=== PATIENT | male | born 1980 | race Two or more races ===

== ENCOUNTER 2021-12-24 11:07 | Emergency (ER) | payer MEDICAID, OTHER ==
[~2021-12-24] VITALS: Ht 180.3 cm; Wt 102.2 kg
[2021-12-24] MEDS ORDERED: KETOROLAC TROMETH 60MG/2ML VIAL IM ONE (13:00)
[2021-12-24] MEDS ORDERED: HYDROcodone-ACET 10/325MG TAB PO ONE (13:00)
[2021-12-24] MEDS ORDERED: TRAM-297 PO (13:21)
[2021-12-24] MEDS ORDERED: GABA300C10 PO (13:21)
[2021-12-24 13:27] VITALS: BP 140/87
== END 2021-12-24 15:30 | disposition home or self-care (01) ==
LOC: ER 11:07
DX: M51.36 Other intervertebral disc degeneration, lumbar region (principal); M54.16 Radiculopathy, lumbar region; E11.9 Type 2 diabetes mellitus without complications; G43.909 Migraine, unspecified, not intractable, without status migrainosus; F17.210 Nicotine dependence, cigarettes, uncomplicated
CPT/HCPCS: 72100; 96372; 99283; J1885

== ENCOUNTER 2023-03-11 23:07 | Emergency (ER) | payer MEDICAID ==
[~2023-03-11] VITALS: Ht 180.3 cm; Wt 99.1 kg
[~2023-03-11 23:07] MED LIST: GABA-1250 PO; TRAM-297 PO
[2023-03-11 23:27] VITALS: BP 129/76; PULSE 83; RESP 16; TEMP 97.9; O2SAT 97
[2023-03-11] MEDS ORDERED: ARIP2TAB PO (23:54)
== END 2023-03-12 00:05 | disposition home or self-care (01) ==
LOC: ER 23:07
DX: F20.9 Schizophrenia, unspecified (principal); I10 Essential (primary) hypertension; E11.9 Type 2 diabetes mellitus without complications; F17.210 Nicotine dependence, cigarettes, uncomplicated; Z76.0 Encounter for issue of repeat prescription

== ENCOUNTER 2023-03-18 03:58 | Inpatient (IN) | payer MEDICAID ==
[~2023-03-18] VITALS: Ht 180.3 cm; Wt 96.0 kg
[~2023-03-18 03:58] MED LIST changes: +ARIP2TAB PO
[2023-03-18 05:18] LABS: Urine Bacteria NONE SEEN /hpf (None Seen); Urine Blood Negative /uL (Negative); Urine Clarity Clear (Clear); Urine Color Yellow (Yellow); Urine Hyaline Cast FEW /lpf (0 - 2); Urine Mucus FEW (None Seen); Urine Protein, UAD 1+ (Negative); Urine Specific Gravity 1.029 (1.001-1.035); Urine Urobilinogen Normal (Negative); Urine WBC 1 /hpf (0 - 3); Urine pH 5.5 (5.0-8.0)
[2023-03-18 05:26] LABS: Basophils # (auto) 0 10 ^3/uL (0-0.2); Basophils % (auto) 0.3 % (0.0-2.0); Eosinophils # (auto) 0 10 ^3/uL (0-0.8); Eosinophils % (auto) 0.1 % (0.0-7.0); Hematocrit 48.9 % (41.0-53.0); Hemoglobin 16.6 g/dL (13.5-17.5); Lymphocytes # (auto) 0.5 10 ^3/uL (0.4-5.4); Lymphocytes % (auto) 3.1 % (10.0-50.0); Mean Corpuscular Volume 94.1 fL (80.0-100.0); Monocytes # (auto) 0.8 10 ^3/uL (0-1.3); Monocytes % (auto) 5.3 % (0.0-12.0); Neutrophils # (auto) 13.6 10 ^3/uL (1.6-8.6); Neutrophils % (auto) 91.2 % (37.0-80.0); Red Cell Distribution Width 13.5 % (11.8-14.3)
[2023-03-18 05:32] LABS: Alanine Aminotransferase 35 U/L (7-40); Albumin 4.9 g/dL (3.2-4.8); Alkaline Phosphatase 105 U/L (46-116); Anion Gap 8 (5-15); Aspartate Aminotransferase 33 U/L (13-40); Bilirubin, Total 0.5 mg/dL (0.2-1.0); Blood Urea Nitrogen 7 mg/dL (9-23); Calcium 9.6 mg/dL (8.7-10.4); Carbon Dioxide 23 mmol/L (20-30); Chloride 102 mmol/L (98-107); Glucose 111 mg/dL (74-106); Lipase 55 U/L (12-53); Sodium 133 mmol/L (136-145)
[2023-03-18] MEDS ORDERED: cefTRIAXone 1GM/50ML D5W 50 ML IV ONE (08:15)
[2023-03-18] MEDS ORDERED: metroNIDAZOLE 500MG/100ML 100 ML IV ONE (08:15)
[2023-03-18] MEDS ORDERED: SODIUM CHLORIDE 0.9% 2,000 ML IV ONE (09:30)
[2023-03-18] MEDS ORDERED: SODIUM CHLORIDE 0.9% 1,000 ML IV ONE (09:30)
[2023-03-18] MEDS ORDERED: DEXTROSE (50%) 50ML SYRG IV PRN (09:30)
[2023-03-18] MEDS: SODIUM CHLORIDE 0.9% 1,000 ML IV SCH ×2 (09:30→18:01)
[2023-03-18] MEDS ORDERED: DOCUSATE SOD 100 MG CAP PO PRN (09:30)
[2023-03-18] MEDS ORDERED: MORPHINE SULFATE INJ 2 MG/ml SYRG IV ONE (09:30)
[2023-03-18] MEDS ORDERED: ONDANSETRON HCL 4 MG/2 ML VIAL IV PRN (09:30)
[2023-03-18] MEDS ORDERED: TEMAZEPAM 15 MG CAP PO PRN (09:30)
[2023-03-18] MEDS ORDERED: DICYCLOMINE HCL (10MG/ML) 2 ML AMPULE IM ONE (09:30)
[2023-03-18] MEDS ORDERED: LORazepam 2MG/ML-1ML VIAL IV PRN (09:30)
[2023-03-18] MEDS: ACCU-CHEK COMFORT CURVE STRIP VI SCH ×3 (11:30→22:04)
[2023-03-18] MEDS: InsuLIN REG 1unit/0.01ml Soln (100units/ml) SC SCH ×3 (11:30→22:00)
[2023-03-18] MEDS ORDERED: ATOR20TA50 PO (11:50)
[2023-03-18] MEDS ORDERED: ARIP1TAB58 PO (11:50)
[2023-03-18] MEDS ORDERED: OXCA600T3 (11:50)
[2023-03-18] MEDS ORDERED: TAMS0.4C36 PO (11:50)
[2023-03-18] MEDS ORDERED: CITA10TA5 PO (11:50)
[2023-03-18] MEDS ORDERED: BENA-19 PO (11:50)
[2023-03-18] MEDS: DICYCLOMINE HCL 10 MG CAP PO SCH ×3 (12:00→23:41)
[2023-03-18] MEDS: OXcarbazepine 300 MG TAB PO SCH ×2 (15:08→22:41)
[2023-03-18] MEDS: CITALOPRAM HYDROBR 20 MG TAB PO SCH (15:08)
[2023-03-18] MEDS: MORPHINE SULFATE INJ 2 MG/ml SYRG IV PRN ×2 (16:09→23:47)
[2023-03-18] MEDS: PIPERACILLIN-TAZOB 3.375GM 100 ML IV SCH (18:42)
[2023-03-18 23:29] VITALS: PULSE 88; RESP 17; O2SAT 97
[2023-03-18 23:57] VITALS: BP 140/89; PULSE 79; RESP 19; TEMP 98.2; O2SAT 97
[2023-03-19] VITALS (7 sets, daily range): BP systolic 104–135; BP diastolic 61–71; PULSE 57–91; RESP 16–20; TEMP 97.9–98.7; O2SAT 90–100
[2023-03-19] MEDS: SODIUM CHLORIDE 0.9% 1,000 ML IV SCH ×2 (01:43→18:01)
[2023-03-19] MEDS: PIPERACILLIN-TAZOB 3.375GM 100 ML IV SCH ×3 (01:43→23:39)
[2023-03-19] MEDS: DICYCLOMINE HCL 10 MG CAP PO SCH ×4 (06:20→22:00)
[2023-03-19] MEDS: ACCU-CHEK COMFORT CURVE STRIP VI SCH ×4 (06:21→22:00)
[2023-03-19] MEDS: InsuLIN REG 1unit/0.01ml Soln (100units/ml) SC SCH ×4 (06:21→22:00)
[2023-03-19 06:22] LABS: Basophils # (auto) 0 10 ^3/uL (0-0.2); Basophils % (auto) 0.2 % (0.0-2.0); Eosinophils # (auto) 0 10 ^3/uL (0-0.8); Eosinophils % (auto) 0.4 % (0.0-7.0); Hematocrit 44.2 % (41.0-53.0); Hemoglobin 14.7 g/dL (13.5-17.5); Lymphocytes # (auto) 0.5 10 ^3/uL (0.4-5.4); Lymphocytes % (auto) 4.8 % (10.0-50.0); Mean Corpuscular Hemoglobin 31.8 pg (28.0-32.0); Mean Corpuscular Hgb Conc. 33.2 g/dL (32.0-36.0); Mean Corpuscular Volume 95.8 fL (80.0-100.0); Monocytes # (auto) 1.3 10 ^3/uL (0-1.3); Monocytes % (auto) 12.8 % (0.0-12.0); Neutrophils # (auto) 8.3 10 ^3/uL (1.6-8.6); Neutrophils % (auto) 81.8 % (37.0-80.0); Red Blood Cells 4.62 10^6/uL (4.5-5.90); Red Cell Distribution Width 13.1 % (11.8-14.3); White Blood Cell 10.1 10^3/uL (4.4-10.8)
[2023-03-19 06:41] LABS: Alanine Aminotransferase 24 U/L (7-40); Alkaline Phosphatase 78 U/L (46-116); Anion Gap 4 (5-15); Aspartate Aminotransferase 30 U/L (13-40); Bilirubin, Total 0.3 mg/dL (0.2-1.0); Calcium 9.1 mg/dL (8.7-10.4); Carbon Dioxide 26 mmol/L (20-30); Chloride 104 mmol/L (98-107); Glucose 92 mg/dL (74-106); Potassium 4.7 mmol/L (3.5-5.1); Sodium 134 mmol/L (136-145); Total Protein 6.5 g/dL (5.7-8.2)
[2023-03-19 06:44] LABS: Blood Urea Nitrogen < 5 mg/dL (9-23)
[2023-03-19 07:04] LABS: BUN/Creatinine Ratio 4.5 (10.0-20.0)
[2023-03-19 08:17] LABS: INR 1.06 (0.9-1.15); Prothrombin Time 11.1 sec (9.3-11.8)
[2023-03-19] MEDS ORDERED: TAMSULOSIN HYDROCHLORIDE 0.4 MG CAP PO ONE (10:00)
[2023-03-19] MEDS ORDERED: LIDOCAINE W/ EPINEPHRINE 2% INJ 20ML VIAL ONE (11:48)
[2023-03-19] MEDS ORDERED: HYDROmorphone HCL 2 MG/ML VL/or syr IV PRN (12:00)
[2023-03-19] MEDS ORDERED: ONDANSETRON HCL 4 MG/2 ML VIAL IV PRN ×2 (12:00→13:45)
[2023-03-19] MEDS ORDERED: MEPERIDINE HCL (25 MG/ML) 1ML VIAL IV PRN (12:00)
[2023-03-19] MEDS ORDERED: METOCLOPRAMIDE HCL 5MG/ml INJ 2ml VIAL IV PRN (12:00)
[2023-03-19] MEDS ORDERED: SUCCINYLCHOLINE CHLORIDE 20 MG/ML 10ML VIAL IV ONE (12:02)
[2023-03-19] MEDS ORDERED: ceFAZolin 1GM/50ML 100 ML IV ONE (12:04)
[2023-03-19] MEDS ORDERED: fentaNYL CITRATE 100 MCG/2 ML VL ONE (12:20)
[2023-03-19] MEDS ORDERED: ONDANSETRON HCL 4 MG/2 ML VIAL ONE (12:30)
[2023-03-19] MEDS ORDERED: PROPOFOL 10 MG/ML 20 ML IV ONE (12:30)
[2023-03-19] MEDS ORDERED: DexAMETHasone SOD PHOS 10MG/1ML VIAL INJ ONE (12:30)
[2023-03-19] MEDS ORDERED: ROCURONIUM 10MG/ML 10ML VIAL IV ONE (12:31)
[2023-03-19] MEDS ORDERED: MEPERIDINE HCL (25 MG/ML) 1ML VIAL ONE ×3 (12:32→13:26)
[2023-03-19] MEDS ORDERED: SUGAMMADEX 200mg/2ml Vial (100MG/ML) IV ONE (13:10)
[2023-03-19] MEDS ORDERED: ACETAMINOPHEN/CODEINE#3 (300/30mg) TAB PO PRN (13:45)
[2023-03-19] MEDS ORDERED: MORPHINE SULFATE INJ 2 MG/ml SYRG IV PRN (13:45)
[2023-03-19] MEDS ORDERED: SODIUM CHLORIDE 0.9% 1,000 ML IV SCH (13:45)
[2023-03-19] MEDS: MORPHINE SULFATE INJ 2 MG/ml SYRG IV PRN (15:02)
[2023-03-19] MEDS: OXcarbazepine 300 MG TAB PO SCH ×2 (15:13→22:00)
[2023-03-19] MEDS: CITALOPRAM HYDROBR 20 MG TAB PO SCH (15:13)
[2023-03-19] MEDS: BENAZEPRIL HCL 10 MG TAB PO SCH (15:13)
[2023-03-19] MEDS ORDERED: ATORVASTATIN 20 MG TAB PO SCH (22:00)
[2023-03-20] MEDS: SODIUM CHLORIDE 0.9% 1,000 ML IV SCH (04:30)
[2023-03-20 04:45] VITALS: BP 111/60; PULSE 57; RESP 16; TEMP 98.2; O2SAT 96
[2023-03-20 05:52] LABS: Basophils # (auto) 0 10 ^3/uL (0-0.2); Eosinophils # (auto) 0 10 ^3/uL (0-0.8); Hematocrit 44.3 % (41.0-53.0); Hemoglobin 14.7 g/dL (13.5-17.5); Lymphocytes # (auto) 0.7 10 ^3/uL (0.4-5.4); Lymphocytes % (auto) 6.8 % (10.0-50.0); Mean Corpuscular Hemoglobin 31.6 pg (28.0-32.0); Mean Corpuscular Hgb Conc. 33.2 g/dL (32.0-36.0); Mean Corpuscular Volume 94.9 fL (80.0-100.0); Monocytes # (auto) 1.1 10 ^3/uL (0-1.3); Neutrophils # (auto) 8.1 10 ^3/uL (1.6-8.6); Neutrophils % (auto) 82.2 % (37.0-80.0); Nucleated Red Blood Cells % 0.1 %; Red Blood Cells 4.67 10^6/uL (4.5-5.90); Red Cell Distribution Width 13.2 % (11.8-14.3); White Blood Cell 9.9 10^3/uL (4.4-10.8)
[2023-03-20 06:21] LABS: Alanine Aminotransferase 28 U/L (7-40); Albumin 4.3 g/dL (3.2-4.8); Alkaline Phosphatase 77 U/L (46-116); Anion Gap 7 (5-15); Aspartate Aminotransferase 31 U/L (13-40); BUN/Creatinine Ratio 5.2 (10.0-20.0); Blood Urea Nitrogen 6 mg/dL (9-23); Calcium 9.3 mg/dL (8.7-10.4); Carbon Dioxide 25 mmol/L (20-30); Chloride 103 mmol/L (98-107); Glucose 115 mg/dL (74-106); Lipase 88 U/L (12-53); Potassium 4.9 mmol/L (3.5-5.1); Sodium 135 mmol/L (136-145)
[2023-03-20] MEDS: ACCU-CHEK COMFORT CURVE STRIP VI SCH ×2 (06:21→11:30)
[2023-03-20] MEDS: InsuLIN REG 1unit/0.01ml Soln (100units/ml) SC SCH ×2 (06:21→11:30)
[2023-03-20 06:22] LABS: Bilirubin, Total 0.3 mg/dL (0.2-1.0); Total Protein 6.8 g/dL (5.7-8.2)
[2023-03-20] MEDS: DICYCLOMINE HCL 10 MG CAP PO SCH ×2 (06:32→11:48)
[2023-03-20] MEDS: PIPERACILLIN-TAZOB 3.375GM 100 ML IV SCH (06:32)
[2023-03-20 08:00] VITALS: BP 116/58; PULSE 89; RESP 18; RESP 20; TEMP 97.4; O2SAT 97; O2SAT 98
[2023-03-20] MEDS: BENAZEPRIL HCL 10 MG TAB PO SCH (09:20)
[2023-03-20] MEDS: OXcarbazepine 300 MG TAB PO SCH (09:21)
[2023-03-20] MEDS: CITALOPRAM HYDROBR 20 MG TAB PO SCH (09:21)
[2023-03-20] MEDS ORDERED: METR-344 PO (11:50)
[2023-03-20 12:03] VITALS: BP 110/62; PULSE 61; RESP 18; TEMP 98.5; O2SAT 96
== END 2023-03-20 13:35 | disposition home or self-care (01) | DRG 263 ==
LOC: ER 03:58 → OVERFLOW 09:32 → WEST WING 22:39
PROVIDERS: ADMIT Nurse Practitioner Family; ATTEND Nurse Practitioner Family
PROC: 0FT44ZZ Resection of Gallbladder, Percutaneous Endoscopic Approach (ICD-10-PCS; principal; 2023-03-19 12:20)
DX: K80.10 Calculus of gallbladder with chronic cholecystitis without obstruction (principal); N17.9 Acute kidney failure, unspecified; K85.10 Biliary acute pancreatitis without necrosis or infection; E87.1 Hypo-osmolality and hyponatremia; K52.9 Noninfective gastroenteritis and colitis, unspecified; E11.9 Type 2 diabetes mellitus without complications; F10.10 Alcohol abuse, uncomplicated; F20.9 Schizophrenia, unspecified; F31.9 Bipolar disorder, unspecified; F41.9 Anxiety disorder, unspecified; I10 Essential (primary) hypertension; F17.200 Nicotine dependence, unspecified, uncomplicated; Z98.84 Bariatric surgery status
CPT/HCPCS: 36415; 70450; 74176; 80053; 80320; 81001; 82570; 82962; 83605; 83690; 84300; 85025; 85610; 87040; G0378; J0330; J0690; J0696; J1100; J1815; J2405; J2543; J2704; J3490

== ENCOUNTER 2023-07-26 21:28 | Emergency (ER) | payer MEDICAID, OTHER ==
[~2023-07-26] VITALS: Ht 180.3 cm; Wt 100.0 kg
[~2023-07-26 21:28] MED LIST changes: +ARIP1TAB58 PO; +ATOR20TA50 PO; +BENA-19 PO; +CITA10TA5 PO; +METR-344 PO; +OXCA600T3; +TAMS0.4C36 PO
[2023-07-26 21:45] VITALS: BP 129/78; PULSE 100; RESP 16; O2SAT 96
[2023-07-26 23:15] LABS: Basophils # (auto) 0 10 ^3/uL (0-0.2); Basophils % (auto) 0.5 % (0.0-2.0); Eosinophils # (auto) 0.2 10 ^3/uL (0-0.8); Eosinophils % (auto) 2.4 % (0.0-7.0); Hematocrit 46.4 % (41.0-53.0); Hemoglobin 15.5 g/dL (13.5-17.5); Lymphocytes # (auto) 1.3 10 ^3/uL (0.4-5.4); Lymphocytes % (auto) 12.9 % (10.0-50.0); Mean Corpuscular Hemoglobin 31.5 pg (28.0-32.0); Mean Corpuscular Hgb Conc. 33.4 g/dL (32.0-36.0); Mean Corpuscular Volume 94.1 fL (80.0-100.0); Monocytes # (auto) 0.9 10 ^3/uL (0-1.3); Monocytes % (auto) 8.8 % (0.0-12.0); Neutrophils # (auto) 7.9 10 ^3/uL (1.6-8.6); Neutrophils % (auto) 75.4 % (37.0-80.0); Nucleated Red Blood Cells % 0.1 %; Red Blood Cells 4.93 10^6/uL (4.5-5.90); Red Cell Distribution Width 13.5 % (11.8-14.3); White Blood Cell 10.4 10^3/uL (4.4-10.8)
[2023-07-26 23:26] LABS: Chloride 108 mmol/L (98-107); Potassium 4.6 mmol/L (3.5-5.1); Sodium 140 mmol/L (136-145)
[2023-07-26 23:27] LABS: Anion Gap 2 (5-15); Carbon Dioxide 30 mmol/L (20-30)
[2023-07-26 23:28] LABS: Calcium 9.7 mg/dL (8.7-10.4)
[2023-07-26 23:33] LABS: Blood Urea Nitrogen 7 mg/dL (9-23); Glucose 111 mg/dL (74-106)
[2023-07-27] MEDS ORDERED: DEXT1SYP9 PO (00:12)
== END 2023-07-27 00:13 | disposition home or self-care (01) ==
LOC: ER 21:28
DX: R05.9 Cough, unspecified (principal); R55 Syncope and collapse; R07.89 Other chest pain; I10 Essential (primary) hypertension; E11.9 Type 2 diabetes mellitus without complications; Z79.899 Other long term (current) drug therapy
CPT/HCPCS: 36415; 71045; 80048; 85025